=== PATIENT | female | born 1975 | race Caucasian/White ===

== ENCOUNTER 2017-03-23 03:20 | Inpatient (IN) | payer BC ==
[~2017-03-23] VITALS: Ht 152.4 cm; Wt 150.0 kg
[2017-03-23] MEDS ORDERED: IV NS 0.9% 1,000 ML BAG IV ONE (03:30)
[2017-03-23] MEDS ORDERED: PHENYTOIN EXTENDED RELEASE 100 MG CAPSULE PO ONE (03:30)
[2017-03-23] MEDS ORDERED: ALBUTEROL FS 2.5 MG/3 ML VIAL.NEB NEB ONE (04:00)
[2017-03-23] MEDS ORDERED: LEVOFLOXACIN (500MG) 500 MG TABLET PO ONE (04:00)
[2017-03-23] MEDS ORDERED: VANCOMYCIN 1 GM in IV D5W 250 ML IV ONE (04:00)
[2017-03-23] MEDS ORDERED: AZITHROMYCIN 500 MG in IV D5W 250 ML IV ONE (04:00)
[2017-03-23] MEDS ORDERED: IPRATROPIUM NEB FS 0.5 MG/2.5 ML AMPUL.NEB NEB ONE (04:00)
[2017-03-23] MEDS ORDERED: ACETAMINOPHEN 650 MG/SUPP.RECT RC ONE (04:00)
[2017-03-23] MEDS ORDERED: ATROPINE SULFATE 1 MG/10 ML DISP.SYRIN IV ONE (04:21)
[2017-03-23] MEDS ORDERED: IV NS 0.9% 1,000 ML IV PRN (04:34)
[2017-03-23] MEDS ORDERED: ZOLPIDEM TARTRATE 5 MG TABLET PO PRN (05:00)
[2017-03-23 05:17] VITALS: BP 150/60
== END 2017-03-23 05:01 | disposition home or self-care (01) | DRG 305 ==
LOC: ER 03:25 → ICU 04:03
PROVIDERS: ADMIT Nurse Practitioner Acute Care; ATTEND Nurse Practitioner Acute Care
DX: I10 Essential (primary) hypertension (principal)
CPT/HCPCS: 80053-TC; 81000-TC; 83605-TC; 84484-TC; 84703-TC; 85025-TC; J0456; J0461; J3370; J7060

== ENCOUNTER → 2018-09-26 | Emergency (ER) | payer BC ==
[~2018-09-26] MED LIST: ATOR40TA PO
== END | disposition left against medical advice (07) ==
LOC: ER 11:41
DX: Z53.21 Procedure and treatment not carried out due to patient leaving prior to being seen by health care provider (principal)

== ENCOUNTER 2019-03-06 03:47 | Emergency (ER) | payer BC ==
[~2019-03-06] VITALS: Ht 177.8 cm; Wt 81.6 kg
[2019-03-06 04:27] VITALS: BP 140/88
[2019-03-06] MEDS ORDERED: METOCLOPRAMIDE HCL 10 MG/2 ML VIAL IV ONE (04:30)
[2019-03-06] MEDS ORDERED: IV NS 0.9% 1,000 ML BAG IV ONE (04:30)
[2019-03-06 05:25] LABS: CALCIUM, SERUM 8.8 mg/dL (8.5-10.1); CARBON DIOXIDE 32 mmol/L (21-32); CHLORIDE 104 mmol/L (98-107); CREATININE 1.9 mg/dL (0.6-1.3); GLUCOSE 264 mg/dL (74-106); POTASSIUM 4.3 mmol/L (3.5-5.1); SODIUM SERUM 140 mmol/L (136-145); UREA NITROGEN, BLOOD 77 mg/dL (7-18)
== END 2019-03-06 04:27 | disposition home or self-care (01) ==
LOC: ER 03:50
DX: Z75.3 Unavailability and inaccessibility of health-care facilities (principal)
CPT/HCPCS: 80048-TC; 81000-TC; 82805-TC; 83605-TC; 84484-TC; 85610-TC; 99281-TC; A6403; J9351